=== PATIENT | male | born 1990 | race Caucasian/White ===

== ENCOUNTER 2020-04-27 19:17 | Emergency (ER) | payer OTHER, BC ==
[~2020-04-27] VITALS: Ht 172.7 cm; Wt 83.5 kg
[2020-04-27 19:31] VITALS: Ht 172.7 cm; Wt 83.5 kg
[2020-04-27 20:55] VITALS: BP 106/71
== END 2020-04-27 20:55 | disposition home or self-care (01) ==
LOC: ED 19:17
DX: S33.5XXA Sprain of ligaments of lumbar spine, initial encounter (principal); S20.212A Contusion of left front wall of thorax, initial encounter; K59.00 Constipation, unspecified; V49.49XA Driver injured in collision with other motor vehicles in traffic accident, initial encounter; Y93.I9 Activity, other involving external motion; Y92.488 Other paved roadways as the place of occurrence of the external cause; Y99.8 Other external cause status
CPT/HCPCS: J1885; Q0162